=== PATIENT | male | born 1995 | race Caucasian/White ===

== ENCOUNTER 2017-02-12 16:56 | Emergency (ER) | payer SELFPAY ==
[~2017-02-12] VITALS: Ht 188 cm; Wt 85.3 kg
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
[2017-02-12] MEDS ORDERED: SERTRALINE HCL100 MG PO (17:28)
[2017-02-12] MEDS ORDERED: ZYRTEC10 M3 PO (17:29)
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
[2017-02-12 18:33] VITALS: BP 141/66
== END 2017-02-12 18:40 ==
LOC: ERH 16:56 → EDBD 16:56 → ERH 17:26
DX: S06.0X1A Concussion with loss of consciousness of 30 minutes or less, initial encounter (principal); S00.03XA Contusion of scalp, initial encounter; S50.811A Abrasion of right forearm, initial encounter; S80.211A Abrasion, right knee, initial encounter; Y00.XXXA Assault by blunt object, initial encounter

== ENCOUNTER 2018-03-07 20:48 | Emergency (ER) | payer OTHER ==
[~2018-03-07] VITALS: Ht 188 cm; Wt 77.1 kg
[~2018-03-07 20:48] MED LIST: SERTRALINE HCL100 MG PO; ZYRTEC10 M3 PO
[2018-03-07 21:05] VITALS: BP 122/75
[2018-03-07] MEDS ORDERED: PATADAY2.5 ML OPH (21:51)
[2018-03-07] MEDS ORDERED: VIGAMOX3 ML OPH (21:51)
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
== END 2018-03-07 22:00 ==
LOC: ERH 20:48
DX: H10.9 Unspecified conjunctivitis (principal)